=== PATIENT | female | born 1945 | race Caucasian/White ===

== ENCOUNTER → 2016-06-17 | Outpatient (REF) | payer MEDICARE, OTHER | LOC: M LAB REF 17:22 | PROVIDERS: ATTEND Podiatrist | DX: L97.422 Non-pressure chronic ulcer of left heel and midfoot with fat layer exposed (principal) ==

== ENCOUNTER → 2019-03-28 | Outpatient (REF) | payer MEDICARE, OTHER | LOC: M LAB REF 15:35 | PROVIDERS: ATTEND Podiatrist | DX: M79.672 Pain in left foot (principal) ==

== ENCOUNTER → 2021-06-17 | Outpatient (REF) | payer MEDICARE, OTHER, BC | LOC: M SFHCDERM 17:24 | PROVIDERS: ATTEND Nurse Practitioner Family | DX: R21 Rash and other nonspecific skin eruption (principal) | CPT/HCPCS: 11104; 88305; G0463 ==

== ENCOUNTER → 2023-05-20 | Outpatient (REF) | payer MEDICARE | LOC: M LAB REF 10:32 | PROVIDERS: ATTEND Podiatrist | DX: L03.039 Cellulitis of unspecified toe (principal) ==

== ENCOUNTER → 2023-08-18 | Outpatient (REF) | payer MEDICARE, BC | LOC: M LAB REF 16:15 | PROVIDERS: ATTEND Podiatrist | DX: L03.031 Cellulitis of right toe (principal) ==

== ENCOUNTER → 2023-11-09 | Outpatient (REF) | payer MEDICARE, BC | LOC: M LAB REF 16:19 | PROVIDERS: ATTEND Podiatrist | DX: L03.032 Cellulitis of left toe (principal) ==

== ENCOUNTER → 2024-02-24 | Outpatient (REF) | payer MEDICARE, BC | LOC: M LAB REF 16:09 | PROVIDERS: ATTEND Podiatrist | DX: L03.031 Cellulitis of right toe (principal) ==

== ENCOUNTER → 2024-06-22 | Outpatient (REF) | payer MEDICARE, BC | LOC: M LAB REF 12:09 | PROVIDERS: ATTEND Podiatrist | DX: L03.031 Cellulitis of right toe (principal) ==

== ENCOUNTER → 2025-01-16 | Outpatient (REF) | payer MEDICARE, BC | LOC: M LAB REF 16:58 | PROVIDERS: ATTEND Podiatrist | DX: L03.039 Cellulitis of unspecified toe (principal) ==